=== PATIENT | male | born 1960 | race Caucasian/White ===

== ENCOUNTER 2018-09-14 08:31 | Day surgery (SDC) | payer BC ==
[~2018-09-14] VITALS: Ht 180.3 cm; Wt 101.4 kg
[~2018-09-14 08:31] MED LIST: Aspirin EC81 MG PO; Crestor20 MG PO; EZET10 PO; INSULANPEN SC; INVOKANA300 MG PO; METFORMIN HCL1000 M1 PO; Novolog100 UNIT/2 SC; PREG75 PO; SILD50TA PO; VITAMIN D32000 UNIT PO; Zestril40 MG PO
== END 2018-09-14 10:19 | disposition home or self-care (01) ==
LOC: ORSCSDS 08:31
PROVIDERS: Surgery
PROC: 0DJD8ZZ Inspection of Lower Intestinal Tract, Via Natural or Artificial Opening Endoscopic (ICD-10-PCS; principal; 2018-09-14 09:45)
DX: Z12.11 Encounter for screening for malignant neoplasm of colon (principal); Z86.010 Personal history of colon polyps; I10 Essential (primary) hypertension; E78.5 Hyperlipidemia, unspecified; E10.8 Type 1 diabetes mellitus with unspecified complications; J45.909 Unspecified asthma, uncomplicated; Z79.4 Long term (current) use of insulin; Z79.82 Long term (current) use of aspirin; Z79.899 Other long term (current) drug therapy
CPT/HCPCS: 82947; J7120

== ENCOUNTER 2022-10-23 18:53 | Emergency (ER) | payer BC ==
[~2022-10-23] VITALS: Ht 180.3 cm; Wt 108.9 kg
[2022-10-23 19:43] LABS: BASOPHILS ABSOLUTE AUTO 0.04 K/mm3 (0.00-0.23); BASOPHILS PERCENT AUTO 0 % (0-2); EOSINOPHILS ABSOLUTE AUTO 0.15 K/mm3 (0.00-0.68); EOSINOPHILS PERCENT AUTO 2 % (0-6); Hematocrit 47.5 % (37.0-53.0); Hemoglobin 15.8 g/dL (13.5-17.5); IMMATURE GRAN ABSOLUTE AUTO 0.01 K/mm3 (0.00-0.10); IMMATURE GRAN PERCENT AUTO 0 % (0-1); LYMPHOCYTES ABSOLUTE AUTO 2.64 K/mm3 (0.84-5.20); LYMPHOCYTES PERCENT AUTO 30 % (21-46); MONOCYTES ABSOLUTE AUTO 0.67 K/mm3 (0.16-1.47); MONOCYTES PERCENT AUTO 8 % (4-13); Mean Corpuscular HGB 30.9 pg (26.0-34.0); Mean Corpuscular HGB Conc 33.3 g/dL (31.5-36.5); Mean Corpuscular Volume 93 fL (80-100); Mean Platelet Volume 9.4 fL (9.1-12.4); NEUTROPHILS ABSOLUTE AUTO 5.43 K/mm3 (1.96-9.15); NEUTROPHILS PERCENT AUTO 61 % (41-73); Platelet Count 390 K/mm3 (150-400); RDW Coefficient Variation 12.8 % (11.7-14.2); RDW Standard Deviation 44.1 fL (35.1-46.3); Red Blood Cell Count 5.11 M/mm3 (4.30-5.90); White Blood Cell Count 8.94 K/mm3 (4.00-11.30)
[2022-10-23 20:05] LABS: Albumin, Blood 3.6 g/dL (3.4-5.0); Albumin/Globulin Ratio 0.9 (0.8-1.8); Bilirubin, Total 0.3 mg/dL (0.1-1.0); Bun/Creatinine Ratio 27.4 (12.0-20.0); Calcium, Blood 9.4 mg/dL (8.5-10.1); Creatinine, Blood 0.8 mg/dL (0.60-1.20); Total Protein, Blood 7.6 g/dL (6.4-8.2)
[2022-10-24] MEDS ORDERED: PRED20 PO (00:07)
== END 2022-10-24 00:51 | disposition home or self-care (01) ==
LOC: ER 18:53
PROVIDERS: Student in an Organized Health Care Education/Training Program
DX: G51.0 Bell's palsy (principal); E10.40 Type 1 diabetes mellitus with diabetic neuropathy, unspecified; I10 Essential (primary) hypertension; Z79.899 Other long term (current) drug therapy; Z79.82 Long term (current) use of aspirin; Z79.4 Long term (current) use of insulin
CPT/HCPCS: 36415; 70450; 80053; 85025; 93005; 93010; J7512

== ENCOUNTER 2023-03-15 07:26 | Day surgery (SDC) | payer BC ==
[~2023-03-15] VITALS: Ht 180.3 cm; Wt 103.4 kg
[2023-03-15] VITALS (16 sets, daily range): BP systolic 104–144; BP diastolic 44–78
[~2023-03-15 07:26] MED LIST changes: +ATEN25 PO; +HUMALOG KW100 UNIT/1 SC; +JARDIANCE25 MG PO; +LEVSOD100 PO; -METFORMIN HCL1000 M1 PO; +METFORMIN HCL500 MG; +PRED20 PO
[2023-03-15] MEDS ORDERED: Crestor40 MG PO (08:27)
[2023-03-15] MEDS ORDERED: B COMPLEX FORM0.4 MG PO (08:27)
[2023-03-15] MEDS ORDERED: ZINC220 PO (08:27)
--- NOTE | 2023-03-15 11:30 | NUR ---
PATIENT ARRIVED TO RECOVERY ROOM SITTING UPRIGHT IN RECLINER. R RADIAL TR BAND FULLY INFLATED. SITE C/D/I SOFT/NONTENDER, NO EVIDENCE OF BLEEDING. PATIENT DENYING ANY PAIN. GOOD PLEUTH WAVE. VSS ON RA
--- NOTE | 2023-03-15 12:42 | NUR ---
INITIAL 3 CC OF AIR REMOVED FROM R RADIAL TR BAND. SITE C/D/I SOFT/NONTENDER, NO EVIDENCE OF HEMATOMA. VSS ON RA. PATIENT DENYING ANY PAIN. PT SITTING COMFORTABLY IN RECLINER TOLERATING PO INTAKE WELL.
--- NOTE | 2023-03-15 13:15 | NUR ---
ALL AIR REMOVED FROM R RADIAL TR BAND. SITE C/D/I SOFT/NONTENDER, NO EVIDENCE OF HEMATOMA. PATIENT DENYING ANY PAIN. VSS ON RA. PATIENT AMBULATING AND VOIDING TO RESTROOM WITHOUT DIFFICULTY. SPOUSE PRESENT AT BEDSIDE.
--- NOTE | 2023-03-15 13:45 | NUR ---
DISCHARGE PAPERWORK AND MEDICATIONS REVIEWED WITH PATIENT AND SPOUSE AT BEDSIDE. TR BAND REMOVED, CLOTH DOT IN PLACE WITH ARMBOARD. PIV REMOVED WITHOUT DIFFICULTY, CATHETER INTACT. PATIENT INSTRUCTED ON RADIAL SITE CARE. VSS ON RA.
--- NOTE | 2023-03-15 13:50 | NUR ---
PATIENT DISCHARGED HOME AT THIS TIME. ALL PATIENT BELONGINGS AND PAPERWORK LEFT WITH PATIENT. PATIENT WHEELED TO HOSPITAL ENTRANCE AND SPOUSE ABLE TO PROVIDE TRANSPORTATION HOME.
== END 2023-03-15 13:50 | disposition home or self-care (01) ==
LOC: MHTC 07:26
DX: I25.10 Atherosclerotic heart disease of native coronary artery without angina pectoris (principal); I10 Essential (primary) hypertension; E78.5 Hyperlipidemia, unspecified; E11.9 Type 2 diabetes mellitus without complications; E03.9 Hypothyroidism, unspecified
CPT/HCPCS: 76937; 93458; 93571; 99152; 99153; C1769; C1887; C1894; J1644; J2250; J3010; J7030; J7050; Q9967

== ENCOUNTER 2024-10-01 07:20 | Day surgery (SDC) | payer BC ==
[~2024-10-01] VITALS: Ht 180.3 cm; Wt 96.8 kg
[2024-10-01] VITALS (15 sets, daily range): BP systolic 112–163; BP diastolic 56–82
[~2024-10-01 07:20] MED LIST changes: +B COMPLEX FORM0.4 MG PO; +Crestor40 MG PO; +Lactated Ringer's 1,000 ML IV SCH; +ZINC220 PO
--- NOTE | 2024-10-01 07:58 | NUR ---
History, Chart, Medications and Allergies reviewed before start of procedure. Ambulatory in Day Surgery WITH [facility]. Patient confirms NPO status and agrees with scheduled surgery. Patient States Post-Procedure ride home has been arranged WITH , [facility]. Pre-Op teaching done. Pt verbalizes understanding. GLASSES REMOVED AND LEFT ON DRAWERS IN PRE OP BAY. GLUCOSE MONITOR ON BACK OF LEFT UPPER ARM.
[2024-10-01] MEDS ORDERED: propofoL 20 ML IV ONE (08:15)
--- NOTE | 2024-10-01 08:32 | NUR ---
10/01/24 0832 Gallito Cardoso CONFIRMED AND REVIEWED H&P, MEDCICATIONS, ALLERGIES, MEDICAL HISTORY, RESPIRATORY HISTORY, VITAL SIGNS, 3-LEAD EKG, CONSENTS, AND PHYSICIAN ORDERS. PATIENT CONFIRMS NPO STATUS AND AGREES WITH SCHEDULED PROCEDURE. MONITOR INTACT WITH CONTINUOUS PULSE OXIMETRY, CAPNOGRAPHY, 3-LEAD EKG, INTERMITTENT BP. SUPPLEMENTAL O2 TO BE TITRATED THROUGHOUT PROCEDURE TO MAINTAIN O2 SATURATION ABOVE 90%. PATIENT DETERMINED TO BE ASA APPROPRIATE FOR PROPOFOL SEDATION PRIOR TO START OF PROCEDURE BY DR. MARTINEZ
--- NOTE | 2024-10-01 09:11 | NUR ---
Patient up to Ambulate independently. Gait steady. Discharge instructions reviewed with patient. Patient verbalizes understanding. Copy given to patient to take home, [facility]. Patient States Post-Procedure ride home has been arranged. Discharged via wheelchair to private car for ride home. PT DENIES PAIN,N/V,SOB. TOLERATING PO. REPORTS READY TO GO HOME.
== END 2024-10-01 09:12 | disposition home or self-care (01) ==
LOC: ORSCMMR 07:20 → ORD 08:00 → ORSCMMR 08:00
PROVIDERS: Internal Medicine Gastroenterology
PROC: 0DJD8ZZ Inspection of Lower Intestinal Tract, Via Natural or Artificial Opening Endoscopic (ICD-10-PCS; principal; 2024-10-01 08:00)
DX: Z12.11 Encounter for screening for malignant neoplasm of colon (principal); Z86.0101 Personal history of adenomatous and serrated colon polyps; E10.9 Type 1 diabetes mellitus without complications; I10 Essential (primary) hypertension; E78.00 Pure hypercholesterolemia, unspecified; E03.9 Hypothyroidism, unspecified; Z79.82 Long term (current) use of aspirin; Z79.4 Long term (current) use of insulin; Z79.84 Long term (current) use of oral hypoglycemic drugs; Z79.899 Other long term (current) drug therapy
CPT/HCPCS: 82947; J2704; J7120